=== PATIENT | male | born 1970 | race Caucasian/White ===

== ENCOUNTER 2019-03-05 05:35 | Observation (INO) | payer OTHER, SELFPAY ==
[2019-03-05] MEDS ORDERED: Aspirin Chewable 81 MG TAB ONE (05:44)
[2019-03-05] MEDS ORDERED: Nitroglycerin 2% Ointment 1 INCH/1 GM Packet ONE (05:44)
[2019-03-05] MEDS ORDERED: methylPREDNISolone Sod Succ/PF 125 MG/2 ML VIAL ONE (05:57)
[2019-03-05] MEDS ORDERED: Famotidine/PF 20 mg/2ml Vial ONE (05:57)
[2019-03-05] MEDS ORDERED: diphenhydrAMINE 50 MG/ML VIAL ONE (05:57)
[2019-03-05 06:13] LABS: ALT (SGPT) 15 U/L (8-55); AST (SGOT) 18 U/L (5-34); Albumin 4.3 g/dL (3.5-5.0); Alkaline Phosphatase 51 U/L (40-150); Anion Gap 13 mmol/L (10-20); BUN (Urea Nitrogen) 9 mg/dL (8.9-20.6); Bilirubin, Total 0.3 mg/dL (0.2-1.2); Calc. Creatinine Clearance 0 mL/min (70-130); Calcium 9.6 mg/dL (7.8-10.44); Carbon Dioxide 24 mmol/L (22-29); Chloride 108 mmol/L (98-107); Estimated GFR-MDRD 84; Globulin 2.6 g/dL (2.4-3.5); Glucose 95 mg/dL (70-105); Potassium 4.2 mmol/L (3.5-5.1); Protein, Total 6.9 g/dL (6.0-8.3); Sodium 141 mmol/L (136-145)
[2019-03-05 06:25] LABS: #Basophils 0.1 thou/uL (0.0-0.2); #Eosinphils 0.1 thou/uL (0.0-0.7); #Lymphocytes 1.7 thou/uL (1.20-3.40); #Monocytes 0.7 thou/uL (0.11-0.59); #Neutrophils 3.1 thou/uL (1.40-6.50); %Eosinophils 1.6 % (0.0-10.0); %Lymphocytes 30.2 % (21.0-51.0); %Monocytes 12.7 % (0.0-10.0); %Neutrophils 54.5 % (42.0-75.0); Hemoglobin 15.1 g/dL (14.0-18.0); Mean Corpuscular HGB CONC 35.6 g/dL (32.0-36.0); Mean Corpuscular Hemoglobin 31.6 pg (27.0-31.0); Mean Corpuscular Volume 88.6 fL (78.0-98.0); Mean Platelet Volume 7.6 fL (7.4-10.4); Platelet Count 214 thou/uL (130-400); RBC Distribution Width 11.8 % (11.5-14.5); Red Blood Cell (RBC) Count 4.77 mill/uL (4.70-6.10); White Blood Cell (WBC) Count 5.7 thou/uL (4.8-10.8)
[2019-03-05] MEDS ORDERED: Ondansetron PF 4 MG/2 ML Vial ONE (06:26)
--- NOTE | 2019-03-05 07:24 | RAD ---
FRONTAL VIEW CHEST: Date: 03/05/19 COMPARISON: 06/24/10. INDICATION: Acute onset chest pain. FINDINGS: There is prominence of the cardiac silhouette, which is due to portable technique and does appear sta ble to prior exam. No discrete pneumothorax. No effusion or consolidation seen. Osseous structures ar e intact. IMPRESSION: Stable chest. POS: YOSEPHK
--- NOTE | 2019-03-05 07:42 | CT ---
CTA CHEST WITH COTNRAST CTA ABDOMEN AND PELVIS WITH CONTRAST 3D VOLUME RENDERING: INDICATION: Chest pain radiating to back, new onset. FINDINGS: There is no evidence of aortic dissection or aortic aneurysm. No periaortic hematoma. Major branch vessels that emanate from the aortic arch, and abdominal aorta, are patent. The imaged bilateral arlette ac arteries are patent. Incidental hepatic dome hyperdensity that may reflect a flash-filling hemangi joycelyn, or focal enhancing vasculature. IMPRESSION: No evidence of acute aortic dissection or aneurysm. No periaortic hematoma. POS: AVIS
[2019-03-05 08:54] VITALS: BMI 31.8
[2019-03-05] MEDS ORDERED: HYDROcodone/Acetaminophen 5/325 mg Tablet PO PRN (09:08)
[2019-03-05] MEDS ORDERED: Diabetic Tussin 200 MG/10 ML UDCUP PO PRN (09:08)
[2019-03-05] MEDS ORDERED: hydrALAZINE 20 MG/ML VIAL SLOW IVP PRN (09:08)
[2019-03-05] MEDS ORDERED: Bisacodyl 10 MG SUPP PR PRN (09:08)
[2019-03-05] MEDS ORDERED: Nitroglycerin 0.4 MG TAB (25 Tab Bottle) PO PRN (09:08)
[2019-03-05] MEDS ORDERED: Artificial Tears 18 DROP/0.9 ML EA EYE PRN (09:08)
[2019-03-05] MEDS ORDERED: Calcium Carbonate 500 MG ChewTAB PO PRN (09:08)
[2019-03-05] MEDS ORDERED: Zolpidem Tartrate 5 MG TAB PO PRN (09:08)
[2019-03-05] MEDS ORDERED: Acetaminophen 325 MG TAB PO PRN (09:08)
[2019-03-05] MEDS ORDERED: Ondansetron ODT 4 MG TAB PO PRN (09:08)
[2019-03-05] MEDS ORDERED: Loperamide HCl 2 MG CAP PO PRN (09:08)
[2019-03-05] MEDS ORDERED: Ondansetron PF 4 MG/2 ML Vial IVP PRN (09:08)
[2019-03-05] MEDS ORDERED: Senokot S 8.6-50 MG TAB PO PRN (09:08)
[2019-03-05] MEDS ORDERED: Loratadine 10 MG TAB PO PRN (09:08)
[2019-03-05] MEDS ORDERED: Sodium Chloride 0.65% Nasal 44 ML BOT EA NARE PRN (09:08)
[2019-03-05 10:03] LABS: Troponin I Less than 0.010 ng/mL (< 0.028)
--- NOTE | 2019-03-05 10:46 | SS ---
DATE OF ADMISSION: 03/05/2019 DATE OF DISCHARGE: 03/05/2019 PRIMARY CARE PHYSICIAN: Dr. Dandy Murillo REASON FOR ADMISSION: Transfer from [facility] for chest pain. HISTORY OF PRESENT ILLNESS: A 48-year-old male, who has past medical history of hypertension, who presented to [facility] with complaint of chest pain. The patient reports that his chest pain is substernal in location, radiated to back, sharp in nature, tearing sensation, associated with nausea without any vomiting. He was also feeling tingling and numbness sensation in left upper extremity. The patient also had associated diaphoresis and mild shortness of breath. Subsequently, the patient was having this type of symptoms intermittently. In the emergency room at the [facility], the patient had a CT dissection protocol which was normal. Chest x-ray was normal. Routine blood test including cardiac enzyme and EKG were normal. The patient was having ongoing symptoms and that is why he was transferred to our hospital for further evaluation. As the patient is allergic to iodine, he required Benadryl for CT dissection protocol. REVIEW OF SYSTEMS: CONSTITUTIONAL: Negative for weight loss or gain, ability to conduct usual activities. SKIN: Negative for rash, itching. EYES: Negative for double vision, pain. ENT/MOUTH: Negative for nose bleeding, neck stiffness, pain, tenderness. CARDIOVASCULAR: Negative for palpitations, dyspnea on exertion, orthopnea. RESPIRATORY: Negative for shortness of breath, wheezing, cough, hemoptysis, fever or night sweats. GASTROINTESTINAL: Negative for poor appetite, abdominal pain, heartburn, nausea, vomiting, constipation, or diarrhea. GENITOURINARY: Negative for urgency, frequency, dysuria, nocturia. MUSCULOSKELETAL: Negative for pain, swelling. NEUROLOGIC/PSYCHIATRIC: Negative for anxiety, depression. ALLERGY/IMMUNOLOGIC: Negative for skin rash, bleeding tendency. Please see my HPI for pertinent positives and negatives. All other review of systems reviewed and negative except as mentioned in HPI. PAST MEDICAL HISTORY: Hypertension. PAST SURGICAL HISTORY: Cholecystectomy. PAST PSYCHIATRIC HISTORY: Anxiety disorder. SOCIAL HISTORY: The patient is . He drinks alcohol socially. He denies any smoking, but he chews tobacco. He denies any other illicit drug abuse. FAMILY HISTORY: Positive for coronary artery disease as well as hypertension and dyslipidemia among several family members. ALLERGIES: IODINE AND PENICILLIN. CURRENT HOME MEDICATIONS: Aspirin 81 mg p.o. daily and lisinopril 5 mg p.o. nightly. EMERGENCY ROOM COURSE: The patient was given Zofran 4 mg, Benadryl 50 mg, Pepcid 20 mg, Solu-Medrol 125 mg, nitroglycerin patch, and aspirin. PHYSICAL EXAMINATION: VITAL SIGNS: Currently, blood pressure 128/79, pulse 60, respiratory rate 18, temperature 98.7, and saturation 95% on room air. Weight 104.3 kg. GENERAL: The patient is currently alert, awake, and in no obvious acute distress. HEENT: Head; normocephalic and atraumatic. Eyes; pupils are round and reactive to light. Extraocular muscle intact. ENT; oropharynx within normal limits. Moist mucous membranes. No oral lesion. No pharyngeal erythema. No exudate. NECK: Supple. No JVD. No thyromegaly. No carotid bruit. No jugular venous distention. LUNGS: Clear to auscultation without any rhonchi or rales. CARDIAC: S1 and S2 regular. No murmur. No gallop. No rub. ABDOMEN: Soft. Bowel sounds are present. Nontender. Nondistended. No organomegaly. No mass. No suprapubic tenderness. No Page sign. No epigastric tenderness. BACK: Examination unremarkable. No CVA tenderness. EXTREMITIES: Upper extremities; passive movement of all joints are normal. Lower extremities; no edema. Good distal pulsation. SKIN: No skin rash. HEMATOLOGIC: No lymphadenopathy. PSYCHIATRIC: Normal affect. NEUROLOGIC: Nonfocal examination. SIGNIFICANT LABORATORY DATA: EKG showing normal sinus rhythm, within normal limits. Chest x-ray based on my review, no acute cardiopulmonary process. CT dissection protocol based on my review, no evidence of dissection or PE. CBC; WBC 5.7, hemoglobin 15.1, and platelets are 214. BMP; sodium 141, potassium 4.2, chloride 108, carbon dioxide 24, BUN 9, creatinine 0.96, glucose 95, calcium 9.6. LFT; AST 18, ALT 15, alkaline phosphatase 51, and albumin 4.3. Cardiac enzyme negative x2. ASSESSMENT/PLAN: 1. Acute chest pain. The patient's chest pain description is atypical. I am suspecting esophageal spasm. His electrocardiogram is normal. His cardiac enzymes are negative x2. His CT dissection protocol is also negative at this point, based on clinical assessment, we will try to rule out cardiac etiology and if cardiac etiology completely ruled out with stress test, then the patient would be able to go home with oral medication with Pepcid 20 mg p.o. b.i.d. He may need further evaluation as an outpatient basis with upper endoscopic evaluation if needed. 2. Hypertension. We will continue lisinopril 5 mg p.o. nightly. 3. Obesity with BMI of 31. Dietary education given. Healthy lifestyle measure discussed with the patient. 4. Deep venous thrombosis prophylaxis not needed because we are expecting discharge today. GI prophylaxis, Pepcid 20 mg p.o. b.i.d. CODE STATUS: The patient is full code and the patient's is surrogate decision maker. DISPOSITION PLAN: Based on stress test result, plan of care and test result discussed with the patient. The patient would be discharged home later on today. Job ID: [id number]
--- NOTE | 2019-03-05 15:41 | NM ---
NUCLEAR MEDICINE CARDIAC PERFUSION EXAMINATION 03/05/19 COMPARISON: 06/24/16. HISTORY: Chest pain. TECHNIQUE: A single day nuclear medicine cardiac perfusion examination was performed. Rest images were obtained using 9.1 millicuries of technetium 99m Sestamibi. Stress images were obtained after giving 29.5 mill icuries of technetium 99m Sestamibi at the peak of exercise on a treadmill using a Bryan protocol. Th e patient achieved 93% maximum predicted heart rate. FINDINGS: Tomographic images show a small sized, moderate intensity reversible perfusion defect along the anter ior wall extending to the apex. Gated images show normal wall motion with injection fraction of 70%. EDV is 102 mL. LHR is 0.3. TID is 0.9. IMPRESSION: Anterior ischemia. POS: LUIS A
[2019-03-05] MEDS: Famotidine 20 MG TAB PO SCH (20:15)
[2019-03-05] MEDS ORDERED: Lisinopril 5 MG TAB PO SCH (21:00)
--- NOTE | 2019-03-06 01:15 | CON ---
DATE OF CONSULTATION: 03/05/2019 INDICATION FOR CONSULTATION: A 48-year-old gentleman with a history of sudden onset of chest pain with slightly abnormal cardiac stress test with a small area of moderate ischemia in the anterior wall. This gentleman has had sharp stabbing pains in his chest. He woke this morning with a sharp stabbing pain, which radiated to the back. He complained of some gagging. He has had some type of procedure performed for a hiatal hernia in the past or reflux. He became somewhat diaphoretic. He has had this pain on and off for about a year. He has had another significant episode 1 night when he was in [place], he had to wake his sister in law up who is a nurse, usually episodes last for 3-5 minutes and then they resolve, later return during the day. He does not typically get, though when he is exerting himself and he is able to use a weed eater for quite amount of time without any significant problems. He has no cigarette abuse, but does dip snuff. He has history of hypertension. He does not like taking medications. He has actually had a pain previously where he said he started shaking. After that, he was seen by his primary care physician who has offered to take antianxiety medications as it was felt that possibly he was having anxiety. He took some for just a couple of days and stopped taking, said he did not like the way he felt. He is under increased stress due to his job and he says he sleeps very little, but he uses increased caffeine and nicotine. He has been in the emergency room several times with similar type chest pain in the last couple of years, but he has had no significant findings. At this time, his EKG is normal. He exercised today on the treadmill and had no EKG changes during the stress test. His cardiac enzymes have remained negative. It does not appear that this is actually cardiac in nature. I suspect he is having some type of esophageal problems due to his increased stress or anxiety. He wishes to go home. He also wishes to have further evaluation due to the abnormality noted on the stress test. I have advised that due to the fact that he has had normal EKGs, no EKG changes with exertion and no evidence of cardiac enzyme abnormality that he could be discharged to home and we could schedule an outpatient cardiac catheterization for this gentleman since it is Friday and he would have to be remaining over the weekend. As far as his medications are concerned, I would start him on a low dose of beta savage and see if he will take it. Otherwise, I believe he should be stable for discharge to home. He will obviously be advised that should he have more further pain that appears to be cardiac, then he can always return to the emergency room for admission. As far as his past medical history, social history, family history, review of systems, medications and allergies, please refer to the notes dictated by the nurse practitioner. PHYSICAL EXAMINATION: GENERAL: Reveals a very pleasant, well-developed, well-nourished gentleman, in no acute distress. VITAL SIGNS: Blood pressure is 122/70, heart rate is 70 and regular, respiratory rate 20, and O2 saturation 94% and he is afebrile. HEENT: Shows head to be normocephalic and atraumatic. Carotid pulses are present. There were no bruits noted. CHEST: Clear to auscultation. CARDIOVASCULAR: Reveals a regular rate and rhythm. There were no murmurs, heaves, thrills, bruits, or rubs. ABDOMEN: Soft and nontender. Positive bowel sounds are present. EXTREMITIES: No clubbing, cyanosis, or edema. Pedal pulses are present. NEUROLOGIC: The patient is fully intact. He does appear to be somewhat anxious, but otherwise he appears to be stable and neurologically also no other significant abnormalities were noted. LABORATORY DATA: Shows no evidence of myocardial infarction. His creatinine is 0.96, potassium is 4.2, hemoglobin is 15.1, WBC of 5.7, and platelet count of 214,000. IMPRESSION: At this time: 1. Atypical chest pain, which most likely is GI in nature. It could be esophageal spasms since he had no enzyme changes and no EKG changes, even though he has a small area of moderate ischemia, this may be artifact and I suggest the patient can be discharged to home and we will follow up with him next week in the office. If he opts to undergo further cardiac catheterization, this would certainly be performed as an outpatient. We will start him on a low dose of beta blockers and see if this will also help with his discomfort. I would continue him on 81 mg of aspirin a day and hopefully he will continue to take lisinopril for his blood pressure as his blood pressure is under much better control at this time. If he is unable to take it, then obviously we can stop the lisinopril and continue with a very low dose of beta savage. 2. History of nicotine abuse. I have suggested he stop using nicotine altogether. Job ID: [id number]
[2019-03-06 08:36] VITALS: TEMP 97.9
[2019-03-06] MEDS ORDERED: Aspirin Chewable 81 MG TAB PO SCH (09:00)
[2019-03-06] MEDS ORDERED: Aspirin 325 mg Enteric Coated Tablet PO SCH (09:00)
[2019-03-06] MEDS: Famotidine 20 MG TAB PO SCH (09:03)
--- NOTE | 2019-03-06 11:04 | DIS ---
DATE OF ADMISSION: 03/05/2019 DATE OF DISCHARGE: 03/06/2019 PRIMARY CARE PHYSICIAN: Dr. Dandy Murillo. DISCHARGE DISPOSITION: Home. PRIMARY DISCHARGE DIAGNOSES: Chest pain, suspecting from esophageal spasm; abnormal stress test (false-positive). SECONDARY DISCHARGE DIAGNOSES: 1. Hypertension. 2. Obesity. RADIOLOGICAL INVESTIGATIONS: Chest x-ray normal. CT dissection negative. Stress test reported as anterior wall ischemia, EF normal. SIGNIFICANT LABORATORY DATA: WBC 5.7, hemoglobin 15.1, and platelets 214. Sodium 141, potassium 4.2, BUN 9, and creatinine 0.96. LFT normal. Cardiac enzyme negative. DISCHARGE MEDICATIONS: 1. Aspirin 81 mg p.o. daily. 2. Lisinopril 5 mg at bedtime. 3. Pepcid 20 mg p.o. b.i.d. CONTRAINDICATION: None. CODE STATUS: Full code. INPATIENT PRODUCTION PLANNER SCHEDULER: Dr. Betancur was consulted for abnormal stress test and she recommended that given the patient symptomatology was consistent with esophageal spasm as well as normal cardiac enzyme and normal troponin as well as normal EKG, she recommended outpatient evaluation for possible need for cardiac catheterization as an outpatient basis. DISCHARGE PLAN: Posthospital, the patient will follow up with Dr. Betancur and primary care physician. HOSPITAL COURSE: This is a 48-year-old male, who was admitted by me, please see my HPI for further details. The patient initially went to [facility] for substernal chest pain, which was radiating to back. He was having intermittent chest discomfort. It was spasmodic in nature. In the emergency room, chest x-ray normal, CT dissection was negative for any dissection, electrocardiogram normal, cardiac enzymes remained negative. He was sent to our hospital for further evaluation. His subsequent cardiac enzyme read negative. Telemetry remained unremarkable. We performed a stress test for diagnostic reason and his stress test reported as abnormal with moderate intensity anterior wall ischemia and that is why we consulted Cardiology. Cardiology decided that the patient has normal troponin and normal EKG and they will prefer outpatient evaluation. This patient is given Pepcid for possible suspected reflux symptoms. While in hospital, cardiology started metoprolol, but with that, the patient's heart rate dropped to 43, and that is why metoprolol was discontinued. He will continue all his previous medications along with Pepcid and he will follow up with Cardiology within a week or two. The patient is also advised that if his symptoms return, then he needs to go back to emergency room. PHYSICAL EXAMINATION: I have seen and examined the patient bedside today. VITAL SIGNS: Temperature 97.9, pulse 50, respiratory rate 20, saturation 98%, blood pressure 103/62. Weight 234 pounds. GENERAL: The patient is currently alert, awake, in no obvious acute distress. HEENT: Normocephalic, atraumatic. LUNGS: Clear to auscultation without any rhonchi or rales. CARDIAC: S1 and S2 regular without any murmur. ABDOMEN: Soft and benign. EXTREMITIES: No edema. NEUROLOGIC: Nonfocal examination. Overall, the patient is medically stable for discharge later on today once Cardiology clears him. Job ID: [id number]
[2019-03-06 11:32] VITALS: BP 131/75
--- NOTE | 2019-03-08 09:39 | CON ---
DATE OF CONSULTATION: PRIMARY CARE DOCTOR: Dr. Dandy Murillo. PRIMARY SHELL ASSEMBLER: Dr. Linda Betancur. REASON FOR CARDIOLOGY CONSULT: Abnormal stress test result. HISTORY OF PRESENT ILLNESS: Mr. Miranda is a 48-year-old male with significant history of hypertension, repair, anxiety with sleep disturbance. The patient presented to the emergency department for the chest pain at the mediastinal area around 5:00 this morning for 3 minutes with dizziness, severe nausea, clammy, and sweating. Actually he has the similar symptom at least once every other week. The sharp pain is localized and does not radiate to anywhere else; however, this morning his symptom was worse than any other times, so he decided to present to the emergency department for further evaluation and treatment. He also complained of dizziness once every 1 to 2 weeks. He sees objects moving, which stay still. But he denied any near or syncopal episodes. He also does not sleep well at night due to the anxiety. He drinks a huge amount of caffeine on daytime to keep him awake. Per his , he has the sleep disturbance for at least 10 years. Today, he underwent a stress test, which shows small size of moderate intensity reversible perfusion defect along the anterior wall, which extended to the apex with an EF of 70% and TID is 0.9. The patient's 12-lead EKG shows ST-segment change with T-wave inversion. The patient's troponin level has been negative x2. At this moment, the patient denied any cardiac complaints. He had never seen the hospital plan administrator before. PAST MEDICAL HISTORY: Anxiety and hypertension, which is managed by primary care doctor. His blood pressure has been stable with lisinopril 5 mg once a day. PAST SURGICAL HISTORY: Cholecystectomy, repair for GERD, hiatal hernia repair. PAST PSYCHIATRIC HISTORY: Anxiety disorder and sleeping disturbance. FAMILY HISTORY: The patient's paternal grandfather due to [place] at the age of 42. The patient's grandmother at the paternal side had a history of leukemia. The patient's grandfather in the maternal side had a total of 3 heart surgeries and pacemaker placement. The patient's mother side of the family has a family history of hyperlipidemia. SOCIAL HISTORY: He is . He has 2 biological children and one adopted child. 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 He is under big stress. He drinks at least once a week to most. He denies smoking, but he chews tobacco one can a week if he is in a normal stage, but if he is under the stress, he uses two cans a week. He denies any illicit drug abuse. He drinks a huge amount of caffeine a day. He does not exercise. He snore according to the patient's family, but he does not stop breathing at night and also he uses large amount of salt for his food. ALLERGIES: HE IS ALLERGIC TO IODINE AND PENICILLIN. MEDICATIONS: The current home medication; 1. Aspirin 81 mg once a day. 2. Lisinopril 5 mg once a day. 3. Excedrin for headache. REVIEW OF SYSTEMS: A 12-point review of systems is negative, unless otherwise mentioned in the HPI. PHYSICAL EXAMINATION: VITAL SIGNS: Blood pressure 110/65, temperature 98.0, pulse is 68, sinus rhythm, respiratory rate 16, O2 saturation 95% on room air. GENERAL: The patient is alert and oriented x4, not in acute distress. HEENT: Head, normocephalic and atraumatic. Eyes, extraocular muscle movement intact. ENT and mouth, oral and nasal mucosa moist without lesion. NECK: Supple. Normal range of motion. No JVD. RESPIRATORY: Clear to auscultate bilaterally without any rale, rhonchi, or wheezing noted. CARDIOVASCULAR: Regular rate and rhythm. Normal S1, S2. There is no S3 or S4. No significant murmur, hives, or thrill noted. EXTREMITIES: 2+ pulses in bilateral upper and lower extremities. No edema in the lower extremities. ABDOMEN: Soft, nontender. No mass to palpitate. Bowel sounds are present. MUSCULOSKELETAL: The patient able to move all extremities without any difficulty. The patient denied claudication. SKIN: Warm and dry. No rash, lesion, or erythema noted. PSYCHIATRIC: The patient is easy to get anxious, otherwise his mood is appropriate, psychotic. NEUROLOGIC: The patient is alert and oriented x4, not in acute distress, nonfocal. LABORATORY DATA: WBC 5.7, hemoglobin 15.1, hematocrit 42.3, platelets 214. Sodium 141, potassium 4.2, BUN 9, creatinine 0.96, glucose 95, AST 18, ALT 15. Troponin is negative x2. Chest x-ray shows no acute change and no evidence of acute aortic dissection or aneurysm. Stress test showed a small area of moderate intensity of reversible perfusion defect along the anterior wall, extended to the apex with EF of 70% and the TID is 0.9. ASSESSMENT AND PLAN: 1. Abnormal stress test result. The patient may undergo the cardiac catheterization by Dr. Betancur on Friday. At this moment, the patient is asymptomatic. The patient's any abnormal EKG at this moment. The patient's vital signs are stable at this moment. I would like to discuss with Dr. Betancur for further treatment for this patient. 2. Hypertension. Blood pressure is stable with current medication, which is lisinopril 5 mg once a day. 3. Anxiety. At this moment, the patient is not interested in taking any anti-anxiety medication. The patient was recommended to start doing the regular exercise, cut down more caffeine, especially at night, diet change, to change his lifestyle before he starts taking any anti-anxiety medication. The patient is willing to start changing his lifestyle after the patient is discharged from the hospital. 4. Significant tobacco. Tobacco cessation education given to the patient. Thank you very much for allowing the Cardiology Service to participate in the care of this patient. We will follow along the patient's care team and make further recommendations as appropriate. Job ID: [id number]
== END 2019-03-06 13:44 | disposition home or self-care (01) ==
LOC: SCSER 05:35 → 2SW 07:00
PROVIDERS: ADMIT Hospitalist; ATTEND Hospitalist
DX: R07.82 Intercostal pain (principal); I10 Essential (primary) hypertension; E66.9 Obesity, unspecified; F41.9 Anxiety disorder, unspecified; F17.220 Nicotine dependence, chewing tobacco, uncomplicated; Z82.49 Family history of ischemic heart disease and other diseases of the circulatory system; Z68.31 Body mass index [BMI] 31.0-31.9, adult; Z88.0 Allergy status to penicillin; Z91.041 Radiographic dye allergy status; Z79.82 Long term (current) use of aspirin; Z79.899 Other long term (current) drug therapy
CPT/HCPCS: 36415; 71045; 71275; 78452; 80053; 84484; 85025; 93005; 93017; 94760; 96374; 96375; A9500; G0378; J1200; J2405; J2930; Q0162; S0028